=== PATIENT | female | born 1940 | race Caucasian/White ===

== ENCOUNTER 2022-04-25 14:40 | Inpatient (IN) | payer MEDICARE ==
[~2022-04-25] VITALS: Ht 175.3 cm; Wt 71.2 kg
[2022-04-25 15:44] LABS: HEMATOCRIT 22.5 % (36-48); MEAN CORPUSCULAR HEMOGLOBIN 29.9 pg (27.0-33.0); MEAN CORPUSCULAR HGB CONC 31.1 g/dL (32.0-36.0); MEAN CORPUSCULAR VOLUME 96.2 fL (79-99); NUCLEATED RED BLOOD CELLS 0.3 % (0.0-0.19); RED BLOOD CELL COUNT(AUTO) 2.34 MIL/uL (4.00-5.50); RED CELL DISTRIBUTION WIDTH 17.7 % (11.0-15.5); WHITE BLOOD COUNT (AUTO) 7.1 K/uL (4.8-10.8)
[2022-04-25 16:12] LABS: ALBUMIN 3.3 g/dL (3.5-5.0); POTASSIUM 3.5 mmol/L (3.5-5.1); TOTAL PROTEIN, SERUM 6.9 g/dL (6.0-8.3)
[2022-04-25] MEDS ORDERED: PANTOPRAZOLE 40 MG/VIAL IVP SCH ×2 (18:30→21:00)
[2022-04-25] MEDS ORDERED: OCTREOTIDE ACETATE 100 MCG/ML AMP IV SCH (18:30)
[2022-04-25] MEDS ORDERED: MORPHINE 4 MG SYG IV PRN (18:30)
[2022-04-25] MEDS ORDERED: ONDANSETRON 4MG INJ IV PRN (18:30)
[2022-04-25] MEDS ORDERED: LIDOCAINE HCL-MPF 1% 2ML VIAL IV PRN ×2 (18:30)
[2022-04-25] MEDS ORDERED: ACETAMINOPHEN 325 MG TAB PO PRN ×2 (18:30)
[2022-04-25] MEDS ORDERED: POTASSIUM CHLORIDE 10% ELIXIR 20 MEQ/15 ML UDCUP PO PRN (18:30)
[2022-04-25] MEDS ORDERED: MAGNESIUM 2GM PREMIX 50ML 50 ML IV PRN (18:30)
[2022-04-25] MEDS ORDERED: KCL 20 MEQ ERTAB PO PRN (18:30)
[2022-04-25] MEDS ORDERED: OCTREOTIDE ACETATE 1,250 MCG in 0.9% NACL 250ML 250 ML IV SCH (18:30)
[2022-04-25] MEDS ORDERED: POTASSIUM CHLORIDE 10MEQ/100ML 100 ML IV PRN ×2 (18:30)
[2022-04-25] MEDS ORDERED: 0.9%NACL 1000ML 1,000 ML IV SCH (18:30)
[2022-04-25] MEDS ORDERED: MORPHINE 2 MG SYG IV PRN (18:30)
[2022-04-25 21:00] VITALS: BP 112/75
== END 2022-04-25 21:38 | disposition left against medical advice (07) | DRG 378 ==
LOC: EDH 14:40 → EDHIP 18:23
PROVIDERS: ADMIT Internal Medicine; ATTEND Internal Medicine
PROC: 30233N1 Transfusion of Nonautologous Red Blood Cells into Peripheral Vein, Percutaneous Approach (ICD-10-PCS; principal; 2022-04-25)
DX: K92.2 Gastrointestinal hemorrhage, unspecified (principal); N17.9 Acute kidney failure, unspecified; D64.9 Anemia, unspecified; I27.20 Pulmonary hypertension, unspecified; I48.91 Unspecified atrial fibrillation; N18.9 Chronic kidney disease, unspecified; I12.9 Hypertensive chronic kidney disease with stage 1 through stage 4 chronic kidney disease, or unspecified chronic kidney disease; Z87.11 Personal history of peptic ulcer disease; Z95.2 Presence of prosthetic heart valve
CPT/HCPCS: 36415; 80053; 82270; 85027; 86850; 86900; 86901; 86923; 87040; 93005; G0378; J2354; J7050; P9016